=== PATIENT | female | born 1930 | race Caucasian/White ===

== ENCOUNTER 2017-03-09 10:46 | Inpatient (IN) | payer MEDICARE, OTHER ==
[~2017-03-09] VITALS: Ht 160 cm; Wt 67.8 kg
[2017-03-09] MEDS ORDERED: METO50TA82 PO (11:15)
[2017-03-09] MEDS ORDERED: BENA1TAB11 PO (11:15)
[2017-03-09] MEDS ORDERED: ATOR20TA PO (11:15)
[2017-03-09] MEDS ORDERED: LEVO50TA5 PO (11:15)
[2017-03-09] MEDS ORDERED: ONDANSETRON 2MG/ML, 2ML ONE (11:29)
[2017-03-09] MEDS ORDERED: MORPHINE SULFATE 4 MG/ML, 1ML IVPush PRN ×2 (11:30→16:30)
[2017-03-09] MEDS ORDERED: SODIUM CHLORIDE 0.9% 1,000ML IVBOLUS ONE (11:30)
[2017-03-09] MEDS ORDERED: SODIUM CHLORIDE FLUSH 10ML SYR IVF ONE (11:30)
[2017-03-09] MEDS ORDERED: ONDANSETRON 2MG/ML, 2ML IVPush ONE (11:30)
[2017-03-09] MEDS ORDERED: ASPIRIN 81 MG TABLET CHEW PO ONE (11:30)
[2017-03-09 12:37] LABS: ASPARTATE AMINO TRANSFERASE 191 U/L (15-37); BLOOD UREA NITROGEN 20 mg/dL (7-18); IS PT STATUS REG ER OR PRE ER? YES
[2017-03-09] MEDS ORDERED: OMNIPAQUE 350 MG/ML, 100ML BOTTLE ONE (13:03)
[2017-03-09] MEDS ORDERED: CEFOTETAN PMX 2GM/50ML 50 ML IV ONE (15:00)
[2017-03-09 15:43] VITALS: BP 166/68
[2017-03-09] MEDS ORDERED: HYDROcodone/APAP 5/325 TABLET PO PRN (16:30)
[2017-03-09] MEDS ORDERED: ACETAMINOPHEN 325 MG TABLET PO PRN (16:30)
[2017-03-09] MEDS ORDERED: PIPERACILLIN/TAZO 3.375 GM in SODIUM CHLORIDE 0.9% 50 ML IV SCH ×2 (16:30→21:00)
[2017-03-09] MEDS ORDERED: POLYETHYLENE GLYCOL 17 GM PACKET PO PRN (16:30)
[2017-03-09] MEDS ORDERED: ONDANSETRON 2MG/ML, 2ML IVPush PRN (16:30)
[2017-03-09] MEDS ORDERED: DOCUSATE 100 MG CAPSULE PO PRN (16:30)
[2017-03-09] MEDS ORDERED: NITROGLYCERIN 0.4 MG BOTTLE (25 TABS) SL PRN (16:30)
[2017-03-09] MEDS ORDERED: CEFOTETAN PMX 2GM/50ML 50 ML IV SCH (16:30)
[2017-03-09] MEDS: SODIUM CHLORIDE 0.9% 1,000 ML IV SCH (16:36)
[2017-03-09] MEDS: PIPERACILLIN/TAZO 3.375 GM in SODIUM CHLORIDE 0.9% 50 ML IV SCH (17:38)
[2017-03-09 18:11] LABS: IS PT STATUS REG ER OR PRE ER? NO
[2017-03-09 18:51] VITALS: BP 147/65
[2017-03-09] MEDS ORDERED: ATORVASTATIN 20 MG TABLET PO SCH (21:00)
[2017-03-10 00:52] LABS: IS PT STATUS REG ER OR PRE ER? NO
[2017-03-10 02:52] VITALS: BP 112/58
[2017-03-10 04:59] LABS: ASPARTATE AMINO TRANSFERASE 332 U/L (15-37); BLOOD UREA NITROGEN 14 mg/dL (7-18)
[2017-03-10] MEDS: SODIUM CHLORIDE 0.9% 1,000 ML IV SCH ×2 (05:44→22:41)
[2017-03-10] MEDS: PIPERACILLIN/TAZO 3.375 GM in SODIUM CHLORIDE 0.9% 50 ML IV SCH ×4 (05:44→22:41)
[2017-03-10 07:28] VITALS: BP 117/55
[2017-03-10] MEDS: HYDROCHLOROTHIAZIDE 25 MG TABLET PO SCH (07:34)
[2017-03-10] MEDS: LEVOTHYROXINE 50 MCG TABLET PO SCH (07:34)
[2017-03-10] MEDS: BENAZEPRIL 20 MG TABLET PO SCH (07:34)
[2017-03-10] MEDS ORDERED: METOPROLOL TARTRATE 50 MG TABLET PO SCH (09:00)
[2017-03-10] MEDS ORDERED: DEXAMETHASONE 4 MG/ML, 1ML ONE (10:29)
[2017-03-10] MEDS ORDERED: PROPOFOL 10 MG/ML, 20ML ONE (10:29)
[2017-03-10] MEDS ORDERED: CEFAZOLIN 1,000 MG ONE (10:29)
[2017-03-10] MEDS ORDERED: SUCCINYLCHOLINE 20 MG/ML, 10ML ONE (10:29)
[2017-03-10] MEDS ORDERED: KETOROLAC 30 MG/1 ML ONE (10:29)
[2017-03-10] MEDS ORDERED: ONDANSETRON 2MG/ML, 2ML ONE (10:29)
[2017-03-10 13:55] VITALS: BP 125/51
[2017-03-10] MEDS ORDERED: BUPIVACAINE/PF-EPI 0.5% 1:200K ONE (15:34)
[2017-03-10] MEDS ORDERED: FENTANYL PF 250 MCG/5ML ONE (17:36)
[2017-03-10] MEDS ORDERED: OMNIPAQUE 350 MG/ML, 50 ML BOTTLE IV ONE (18:16)
[2017-03-10] MEDS ORDERED: OMNIPAQUE 350 MG/ML, 50 ML BOTTLE ONE (18:50)
[2017-03-10] MEDS ORDERED: ALBUTEROL SULFATE 2.5 MG/3 ML NPPB PRN (19:00)
[2017-03-10] MEDS ORDERED: HYDROcodone/APAP 7.5-325MG/15ML UDC PO PRN (19:00)
[2017-03-10] MEDS ORDERED: METOPROLOL 1 MG/ML, 5ML IV PRN (19:00)
[2017-03-10] MEDS ORDERED: ACETAMINOPHEN 325 MG TABLET PO PRN (19:00)
[2017-03-10] MEDS ORDERED: hydrALAzine 20 MG/ML, 1ML IV PRN (19:00)
[2017-03-10] MEDS ORDERED: HALOPERIDOL 5 MG/ML IV ONE (19:00)
[2017-03-10] MEDS ORDERED: FENTANYL PF 100 MCG/2ML ONE (19:38)
[2017-03-10] MEDS ORDERED: HYDROcodone/APAP 7.5-325MG/15ML UDC ONE (19:38)
[2017-03-10] MEDS: FENTANYL PF 100 MCG/2ML IV PRN ×3 (19:41→19:51)
[2017-03-10] MEDS ORDERED: HYDROmorphone 2 MG/ML, 1ML ONE (19:54)
[2017-03-10] MEDS: HYDROmorphone 1 MG/ML, 1ML IV PRN ×3 (19:55→20:06)
[2017-03-10 20:40] VITALS: BP 120/51
[2017-03-11 02:43] VITALS: BP 119/63
[2017-03-11] MEDS ORDERED: OXYcodone IR 5MG TABLET PO PRN (04:00)
[2017-03-11] MEDS: CEFOTETAN PMX 1GM/50ML 50 ML IV SCH ×2 (05:03→17:00)
[2017-03-11] MEDS: PIPERACILLIN/TAZO 3.375 GM in SODIUM CHLORIDE 0.9% 50 ML IV SCH ×3 (05:36→21:41)
[2017-03-11 05:50] VITALS: BP 146/68
[2017-03-11] MEDS: METOPROLOL SUCCINATE 50 MG TAB.ER.24H PO SCH (06:00)
[2017-03-11] MEDS: LEVOTHYROXINE 50 MCG TABLET PO SCH (06:30)
[2017-03-11 07:08] VITALS: BP 138/65
[2017-03-11 08:40] LABS: BLOOD UREA NITROGEN 15 mg/dL (7-18)
[2017-03-11] MEDS: BENAZEPRIL 20 MG TABLET PO SCH (09:00)
[2017-03-11] MEDS: HYDROCHLOROTHIAZIDE 25 MG TABLET PO SCH (09:00)
[2017-03-11] MEDS ORDERED: MAGNESIUM SULFATE PMX 2GM/50ML 50 ML IV ONE (09:30)
[2017-03-11] MEDS ORDERED: FENTANYL PF 250 MCG/5ML ONE (09:47)
[2017-03-11] MEDS ORDERED: MEPERIDINE/PF 25MG/0.5ML IVPush PRN (10:30)
[2017-03-11] MEDS ORDERED: ONDANSETRON 2MG/ML, 2ML IVPush PRN (10:30)
[2017-03-11] MEDS ORDERED: MIDAZOLAM 1 MG/ML, 2ML IV PRN (10:30)
[2017-03-11] MEDS ORDERED: PROMETHAZINE 25 MG/ML, 1ML IV PRN (10:30)
[2017-03-11] MEDS ORDERED: HYDROmorphone 1 MG/ML, 1ML IV PRN (10:30)
[2017-03-11] MEDS ORDERED: ALBUTEROL/IPRATROPIUM 2.5MG/0.5MG, 3 ML NPPB PRN (10:30)
[2017-03-11] MEDS ORDERED: FENTANYL PF 100 MCG/2ML IV PRN (10:30)
[2017-03-11] MEDS ORDERED: OXYcodone 5 MG/5 ML ORAL.SOL UDC PO PRN (10:30)
[2017-03-11] MEDS ORDERED: LABETALOL 5MG/ML, 20ML IV PRN (10:30)
[2017-03-11] MEDS ORDERED: EPHEDRINE 50 MG/ML, 1ML IVPush PRN (10:30)
[2017-03-11] MEDS ORDERED: hydrALAzine 20 MG/ML, 1ML IV PRN (10:30)
[2017-03-11] MEDS ORDERED: OMNIPAQUE 350 MG/ML, 50 ML BOTTLE ONE (10:51)
[2017-03-11] MEDS ORDERED: SUCCINYLCHOLINE 20 MG/ML, 10ML ONE (11:44)
[2017-03-11] MEDS ORDERED: PROPOFOL 10 MG/ML, 20ML ONE (11:44)
[2017-03-11] MEDS ORDERED: ONDANSETRON 2MG/ML, 2ML ONE (11:44)
[2017-03-11] MEDS ORDERED: PHENYLEPHRINE 10 MG/ML ONE (11:44)
[2017-03-11] MEDS ORDERED: DEXAMETHASONE 4 MG/ML, 1ML ONE (11:44)
[2017-03-11] MEDS ORDERED: EPHEDRINE 50 MG/ML, 1ML ONE (11:44)
[2017-03-11 14:30] VITALS: BP 116/72
[2017-03-11] MEDS: SODIUM CHLORIDE 0.9% 1,000 ML IV SCH (15:11)
[2017-03-12 02:08] VITALS: BP 121/66
[2017-03-12] MEDS: SODIUM CHLORIDE 0.9% 1,000 ML IV SCH (04:21)
[2017-03-12] MEDS: PIPERACILLIN/TAZO 3.375 GM in SODIUM CHLORIDE 0.9% 50 ML IV SCH ×4 (04:21→21:09)
[2017-03-12 06:09] LABS: BLOOD UREA NITROGEN 13 mg/dL (7-18)
[2017-03-12] MEDS: LEVOTHYROXINE 50 MCG TABLET PO SCH (06:10)
[2017-03-12] MEDS: METOPROLOL SUCCINATE 50 MG TAB.ER.24H PO SCH (06:10)
[2017-03-12 06:14] LABS: ASPARTATE AMINO TRANSFERASE 69 U/L (15-37)
[2017-03-12 08:00] VITALS: BP 120/49
[2017-03-12] MEDS: BENAZEPRIL 20 MG TABLET PO SCH (09:31)
[2017-03-12] MEDS: HYDROCHLOROTHIAZIDE 25 MG TABLET PO SCH (09:31)
[2017-03-12 15:07] VITALS: BP 133/68
[2017-03-12 20:35] VITALS: BP 138/72
[2017-03-12] MEDS: SENNA/DOCUSATE TABLET PO SCH (21:09)
[2017-03-13 01:12] VITALS: BP 149/68
[2017-03-13] MEDS: PIPERACILLIN/TAZO 3.375 GM in SODIUM CHLORIDE 0.9% 50 ML IV SCH ×2 (03:34→09:32)
[2017-03-13] MEDS: METOPROLOL SUCCINATE 50 MG TAB.ER.24H PO SCH (05:30)
[2017-03-13] MEDS: LEVOTHYROXINE 50 MCG TABLET PO SCH (05:30)
[2017-03-13 05:37] LABS: BLOOD UREA NITROGEN 13 mg/dL (7-18)
[2017-03-13 05:42] LABS: ASPARTATE AMINO TRANSFERASE 39 U/L (15-37)
[2017-03-13 07:53] VITALS: BP 145/74
[2017-03-13] MEDS: HYDROCHLOROTHIAZIDE 25 MG TABLET PO SCH (09:32)
[2017-03-13] MEDS: SENNA/DOCUSATE TABLET PO SCH (09:32)
[2017-03-13] MEDS: BENAZEPRIL 20 MG TABLET PO SCH (09:32)
[2017-03-13] MEDS ORDERED: POTASSIUM CHLORIDE 20 MEQ TAB.ER.PRT PO ONE (12:00)
[2017-03-13 13:14] VITALS: BP 187/64
== END 2017-03-13 14:14 | disposition home or self-care (01) | DRG 417 ==
LOC: ED 13:20 → EDIP 14:12 → 5SO 15:29 → 4EST 03-11 05:46 → DCLOUNGE 03-13 13:57
PROVIDERS: ADMIT Internal Medicine
PROC: BF111ZZ Fluoroscopy of Biliary and Pancreatic Ducts using Low Osmolar Contrast (ICD-10-PCS; 2017-03-10)
PROC: 0FT44ZZ Resection of Gallbladder, Percutaneous Endoscopic Approach (ICD-10-PCS; principal; 2017-03-10 16:30)
PROC: 0FC98ZZ Extirpation of Matter from Common Bile Duct, Via Natural or Artificial Opening Endoscopic (ICD-10-PCS; 2017-03-11)
DX: K80.46 Calculus of bile duct with acute and chronic cholecystitis without obstruction (principal); E43 Unspecified severe protein-calorie malnutrition; K85.10 Biliary acute pancreatitis without necrosis or infection; E87.1 Hypo-osmolality and hyponatremia; E87.2 Acidosis; E44.1 Mild protein-calorie malnutrition; R65.10 Systemic inflammatory response syndrome (SIRS) of non-infectious origin without acute organ dysfunction; E03.9 Hypothyroidism, unspecified; E78.5 Hyperlipidemia, unspecified; K44.9 Diaphragmatic hernia without obstruction or gangrene; K66.0 Peritoneal adhesions (postprocedural) (postinfection); Z66 Do not resuscitate; H35.30 Unspecified macular degeneration; D53.9 Nutritional anemia, unspecified; I11.9 Hypertensive heart disease without heart failure; I25.10 Atherosclerotic heart disease of native coronary artery without angina pectoris; I25.2 Old myocardial infarction; Z79.82 Long term (current) use of aspirin; Z87.891 Personal history of nicotine dependence; Z95.1 Presence of aortocoronary bypass graft; Z79.899 Other long term (current) drug therapy; Z68.26 Body mass index [BMI] 26.0-26.9, adult
CPT/HCPCS: 36415; 71010; 71275; 74300; 74328; 76700; 80048; 80053; 81003; 83605; 83735; 83880; 84145; 84443; 84484; 85025; 85379; 85610; 87040; 88304; 93005; 96361; 96374; C1729; J0690; J1100; J1170; J1885; J2405; J2543; J2704; J3010; Q9967; J0330; J2370; J3475; J7030; S0074

== ENCOUNTER 2018-07-06 08:22 | Inpatient (IN) | payer MEDICARE, OTHER ==
[~2018-07-06] VITALS: Ht 160 cm; Wt 74.4 kg
[~2018-07-06 08:22] MED LIST: ATOR20TA PO; BENA1TAB11 PO; LEVO50TA5 PO; METO50TA82 PO
[2018-07-06] MEDS ORDERED: NITROGLYCERIN SINGLE TAB 0.4 MG SL ONE (09:28)
[2018-07-06] MEDS ORDERED: ONDANSETRON ODT 4 MG ONE ×2 (09:28→11:18)
[2018-07-06] MEDS ORDERED: MAALOX/HYOSCYAMINE/LIDOCAINE 45 ML BTL ONE (09:28)
[2018-07-06] MEDS ORDERED: ONDANSETRON ODT 4 MG PO ONE ×2 (09:30→11:30)
[2018-07-06] MEDS ORDERED: NITROGLYCERIN SINGLE TAB 0.4 MG SL PRN (09:30)
[2018-07-06] MEDS ORDERED: MAALOX/HYOSCYAMINE/LIDOCAINE 45 ML BTL PO ONE (09:30)
[2018-07-06 09:58] LABS: BASOPHILS % (AUTO) 0 % (0-1); EOSINOPHILS # (AUTO) 0.02 x10^3/uL (0-0.4); EOSINOPHILS % (AUTO) 0 % (1-7); LYMPHOCYTES # (AUTO) 0.56 x10^3/uL (1-3.4); LYMPHOCYTES % (AUTO) 5 % (22-44); MD NO; MEAN CORPUSCULAR HEMOGLOBIN 34.4 pg (27.0-34.8); MEAN CORPUSCULAR HGB CONC 34.3 g/dL (32.4-35.8); MEAN CORPUSCULAR VOLUME 100.5 fL (80-100); MEAN PLATELET VOLUME 7.8 fL (7.4-10.4); MONOCYTES # (AUTO) 0.36 x10^3/uL (0.2-0.8); MONOCYTES % (AUTO) 3 % (2-9); NEUTROPHILS # (AUTO) 9.53 x10^3/uL (1.8-6.8); NEUTROPHILS % (AUTO) 91 % (42-75); PLATELET COUNT 127 x10^3/uL (130-400); RED BLOOD COUNT 4.18 x10^6/uL (3.82-5.3); RED CELL DISTRIBUTION WIDTH 13.7 % (9.6-15.2)
[2018-07-06 10:03] LABS: ALANINE AMINOTRANSFERASE 206 U/L (12-78); ALBUMIN 3.5 g/dL (3.4-5.0); ANION GAP 8 mmol/L (5-15); CALCIUM 9.6 mg/dL (8.5-10.1); CHLORIDE 99 mmol/L (98-107); CREATININE 0.82 mg/dL (0.55-1.02)
[2018-07-06 10:08] LABS: ALKALINE PHOSPHATASE 101 U/L (45-117); BILIRUBIN,TOTAL 1.8 mg/dL (0.2-1.0); TOTAL PROTEIN 6.6 g/dL (6.4-8.2); TROPONIN I < 0.015 ng/mL (0.000-0.045)
[2018-07-06] MEDS ORDERED: MORPHINE SULFATE 4 MG/ML, 1ML IVPush ONE (10:30)
[2018-07-06] MEDS ORDERED: MORPHINE SULFATE 4 MG/ML, 1ML ONE ×2 (10:36→12:27)
[2018-07-06] MEDS ORDERED: PROMETHAZINE 25 MG/ML, 1ML IM ONE (11:30)
[2018-07-06] MEDS ORDERED: ACETAMINOPHEN 325 MG TABLET PO PRN (13:00)
[2018-07-06] MEDS ORDERED: PROMETHAZINE 25 MG/ML, 1ML IM PRN (13:00)
[2018-07-06] MEDS ORDERED: ENOXAPARIN 40 MG/0.4 ML SQ SCH (13:00)
[2018-07-06] MEDS ORDERED: morphine SULFATE 10 MG/ML, 1ML IVPush PRN (13:00)
[2018-07-06 14:17] VITALS: BP 168/76
[2018-07-06] MEDS: KETOROLAC 30 MG/1 ML IV PRN (14:39)
[2018-07-06 14:46] LABS: TROPONIN I < 0.015 ng/mL (0.000-0.045)
[2018-07-06] MEDS: SODIUM CHLORIDE 0.9% 1,000 ML IV SCH (15:04)
[2018-07-06] MEDS ORDERED: IBAN150T PO (15:53)
[2018-07-06] MEDS: ISOSORBIDE DINITRATE 10 MG TABLET PO SCH ×2 (16:13→21:00)
[2018-07-06 20:53] LABS: TROPONIN I 0.019 ng/mL (0.000-0.045)
[2018-07-06 21:00] VITALS: BP 102/66
[2018-07-06] MEDS ORDERED: ATORVASTATIN CALCIUM 20 MG PO SCH (21:00)
[2018-07-06 21:33] VITALS: BP 90/53
[2018-07-06] MEDS: ATORVASTATIN 40 MG TABLET PO SCH (21:39)
[2018-07-07] MEDS: KETOROLAC 30 MG/1 ML IV PRN (01:49)
[2018-07-07 02:06] VITALS: BP 139/67
[2018-07-07] MEDS: SODIUM CHLORIDE 0.9% 1,000 ML IV SCH (05:58)
[2018-07-07 06:06] LABS: CHLORIDE 99 mmol/L (98-107)
[2018-07-07 06:14] LABS: ALANINE AMINOTRANSFERASE 315 U/L (12-78); ALBUMIN 2.8 g/dL (3.4-5.0); ALKALINE PHOSPHATASE 113 U/L (45-117); ANION GAP 12 mmol/L (5-15); BILIRUBIN,TOTAL 5.7 mg/dL (0.2-1.0); CALCIUM 9.2 mg/dL (8.5-10.1); CREATININE 1.31 mg/dL (0.55-1.02); TOTAL PROTEIN 5.4 g/dL (6.4-8.2)
[2018-07-07] MEDS: LEVOTHYROXINE 50 MCG TABLET PO SCH (06:49)
[2018-07-07] MEDS: ASPIRIN 325 MG TABLET PO SCH (06:49)
[2018-07-07 07:14] LABS: INTERNATIONAL NORMALIZED RATIO 1.16 (0.93-1.1)
[2018-07-07 08:26] VITALS: BP 96/60
[2018-07-07] MEDS: CARVEDILOL 6.25 MG TABLET PO SCH ×2 (08:26→16:48)
[2018-07-07] MEDS: ISOSORBIDE DINITRATE 10 MG TABLET PO SCH ×3 (08:27→21:00)
[2018-07-07] MEDS: HEPARIN 5,000 UNITS/ML, 1ML SQ SCH ×2 (08:27→17:41)
[2018-07-07] MEDS ORDERED: METOPROLOL TARTRATE 50 MG TABLET PO SCH (09:00)
[2018-07-07] MEDS ORDERED: METOPROLOL TARTRATE 25 MG TABLET PO SCH (09:00)
[2018-07-07] MEDS ORDERED: FENTANYL PF 100 MCG/2ML ONE (12:54)
[2018-07-07] MEDS ORDERED: PROPOFOL 10 MG/ML, 20ML ONE (12:55)
[2018-07-07] MEDS ORDERED: DEXAMETHASONE 4 MG/ML, 1ML ONE ×2 (12:55)
[2018-07-07] MEDS ORDERED: ROCURONIUM 10MG/ML,5ML ONE (12:55)
[2018-07-07] MEDS ORDERED: SUCCINYLCHOLINE 20 MG/ML, 10ML ONE (12:55)
[2018-07-07] MEDS ORDERED: ONDANSETRON 2MG/ML, 2ML ONE (12:58)
[2018-07-07] MEDS ORDERED: OXYcodone 5 MG/5 ML ORAL.SOL UDC PO PRN (13:30)
[2018-07-07] MEDS ORDERED: ONDANSETRON ODT 8 MG PO PRN (13:30)
[2018-07-07] MEDS ORDERED: EPHEDRINE 50 MG/ML, 1ML IVPush PRN (13:30)
[2018-07-07] MEDS ORDERED: LORazepam 2 MG/ML, 1ML IVPush PRN (13:30)
[2018-07-07] MEDS ORDERED: FENTANYL PF 100 MCG/2ML IV PRN (13:30)
[2018-07-07] MEDS ORDERED: PROMETHAZINE 12.5 MG SUPP PR PRN (13:30)
[2018-07-07] MEDS ORDERED: hydrALAzine 20 MG/ML, 1ML IV PRN (13:30)
[2018-07-07] MEDS ORDERED: ONDANSETRON 2MG/ML, 2ML IV PRN (13:30)
[2018-07-07] MEDS ORDERED: MIDAZOLAM 1 MG/ML, 2ML IV PRN (13:30)
[2018-07-07] MEDS ORDERED: HYDROmorphone 1 MG/ML, 1ML IV PRN (13:30)
[2018-07-07] MEDS ORDERED: LABETALOL 5MG/ML, 20ML IV PRN (13:30)
[2018-07-07] MEDS ORDERED: MORPHINE SULFATE 4 MG/ML, 1ML IVPush PRN (13:30)
[2018-07-07] MEDS ORDERED: PROMETHAZINE 25 MG/ML, 1ML IV PRN (13:30)
[2018-07-07] MEDS ORDERED: MEPERIDINE/PF 25MG/0.5ML IVPush PRN (13:30)
[2018-07-07] MEDS ORDERED: ALBUTEROL SULFATE 2.5 MG/3 ML NPPB PRN (13:30)
[2018-07-07] MEDS ORDERED: EPHEDRINE 50 MG/ML, 1ML ONE (13:55)
[2018-07-07] MEDS ORDERED: EPHEDRINE 50 MG/ML, 1ML IM ONE (14:00)
[2018-07-07] MEDS ORDERED: EPHEDRINE 50 MG/ML, 1ML IVPush ONE (14:00)
[2018-07-07] MEDS ORDERED: OMNIPAQUE 350 MG/ML, 50 ML BOTTLE ONE (14:29)
[2018-07-07 15:15] VITALS: BP 108/77
[2018-07-07 19:44] VITALS: BP 104/64
[2018-07-07] MEDS: ATORVASTATIN 40 MG TABLET PO SCH ×2 (21:00→21:05)
[2018-07-07 21:04] VITALS: BP 90/57
[2018-07-07 23:40] VITALS: BP 91/61
[2018-07-08] MEDS: SODIUM CHLORIDE 0.9% 1,000 ML IV SCH ×2 (00:35→18:41)
[2018-07-08] MEDS: HEPARIN 5,000 UNITS/ML, 1ML SQ SCH ×3 (00:36→16:30)
[2018-07-08 06:00] VITALS: BP 100/67
[2018-07-08] MEDS: ASPIRIN 325 MG TABLET PO SCH (06:00)
[2018-07-08] MEDS: LEVOTHYROXINE 50 MCG TABLET PO SCH (06:13)
[2018-07-08] MEDS: CARVEDILOL 6.25 MG TABLET PO SCH ×2 (06:13→22:25)
[2018-07-08 14:27] LABS: ALBUMIN 2.8 g/dL (3.4-5.0); ANION GAP 9 mmol/L (5-15); CALCIUM 8.7 mg/dL (8.5-10.1); CHLORIDE 103 mmol/L (98-107)
[2018-07-08 14:32] LABS: ALANINE AMINOTRANSFERASE 527 U/L (12-78); ALKALINE PHOSPHATASE 104 U/L (45-117); BILIRUBIN,TOTAL 1.3 mg/dL (0.2-1.0); CREATININE 1.28 mg/dL (0.55-1.02)
[2018-07-08 15:43] LABS: MD YES; MEAN CORPUSCULAR HEMOGLOBIN 35.3 pg (27.0-34.8); MEAN CORPUSCULAR HGB CONC 35.2 g/dL (32.4-35.8); MEAN CORPUSCULAR VOLUME 100.5 fL (80-100); MEAN PLATELET VOLUME 9.2 fL (7.4-10.4); PLATELET COUNT 92 x10^3/uL (130-400); RED BLOOD COUNT 3.56 x10^6/uL (3.82-5.3); RED CELL DISTRIBUTION WIDTH 14.1 % (9.6-15.2)
[2018-07-08 15:45] LABS: BAND#(MANUAL) 2.65 x10^3/uL; BANDS%(MANUAL) 21 % (0-7); LYMPH#(MANUAL) 0.38 x10^3/uL (1-3.4); LYMPHS% (MANUAL) 3 % (22-44); MONOS% (MANUAL) 4 % (2-9); SEG#(MANUAL) 9.07 x10^3/uL (1.8-6.8); SEGS% (MANUAL) 72 % (42-75)
[2018-07-08 15:47] VITALS: BP 101/62
[2018-07-08 15:47] LABS: <PLATELET ESTIMATE> DECREASED; <PLT MORPHOLOGY> NORMAL PLT MORPH; ANISOCYTOSIS 1+; OVALOCYTES 1+; TOXIC GRAN 1+
[2018-07-08 22:16] VITALS: BP 86/56
[2018-07-08] MEDS: ATORVASTATIN 40 MG TABLET PO SCH (22:17)
[2018-07-09] MEDS: HEPARIN 5,000 UNITS/ML, 1ML SQ SCH ×2 (00:30→10:31)
[2018-07-09 01:21] VITALS: BP 89/58
[2018-07-09 05:27] VITALS: BP 91/57
[2018-07-09] MEDS: ASPIRIN 325 MG TABLET PO SCH (05:29)
[2018-07-09] MEDS: LEVOTHYROXINE 50 MCG TABLET PO SCH (05:29)
[2018-07-09] MEDS: CARVEDILOL 6.25 MG TABLET PO SCH (08:00)
[2018-07-09 08:13] VITALS: BP 88/61
[2018-07-09 09:07] LABS: MICROSCOPIC NOT IND
[2018-07-09 09:16] LABS: CULTURE INDICATED? NO
[2018-07-09 10:42] LABS: ALANINE AMINOTRANSFERASE 319 U/L (12-78); ALBUMIN 2.4 g/dL (3.4-5.0); ANION GAP 8 mmol/L (5-15); CALCIUM 8.4 mg/dL (8.5-10.1); CHLORIDE 107 mmol/L (98-107); CREATININE 0.87 mg/dL (0.55-1.02)
[2018-07-09 10:44] LABS: ALKALINE PHOSPHATASE 84 U/L (45-117); BILIRUBIN,TOTAL 1.1 mg/dL (0.2-1.0); TOTAL PROTEIN 5.1 g/dL (6.4-8.2)
[2018-07-09 12:03] VITALS: BP 103/67
[2018-07-09] MEDS ORDERED: CARVEDILOL 6.25 MG TABLET PO SCH (12:25)
[2018-07-09] MEDS ORDERED: CARVEDILOL 6.25 MG TABLET ONE (12:29)
[2018-07-09 13:12] VITALS: BP 92/60
== END 2018-07-09 16:55 | disposition home or self-care (01) | DRG 444 ==
LOC: ED 10:15 → EDIP 12:10 → 5SO 14:02 → DCLOUNGE 07-09 16:36
PROVIDERS: ADMIT Internal Medicine; ATTEND Hospitalist
PROC: BF101ZZ Fluoroscopy of Bile Ducts using Low Osmolar Contrast (ICD-10-PCS; 2018-07-07)
PROC: 0F798ZZ Dilation of Common Bile Duct, Via Natural or Artificial Opening Endoscopic (ICD-10-PCS; 2018-07-07)
PROC: 0F778ZZ Dilation of Common Hepatic Duct, Via Natural or Artificial Opening Endoscopic (ICD-10-PCS; 2018-07-07)
PROC: 0FC98ZZ Extirpation of Matter from Common Bile Duct, Via Natural or Artificial Opening Endoscopic (ICD-10-PCS; principal; 2018-07-07 13:00)
DX: K80.50 Calculus of bile duct without cholangitis or cholecystitis without obstruction (principal); N17.0 Acute kidney failure with tubular necrosis; I25.10 Atherosclerotic heart disease of native coronary artery without angina pectoris; E03.9 Hypothyroidism, unspecified; E78.5 Hyperlipidemia, unspecified; I10 Essential (primary) hypertension; Z87.891 Personal history of nicotine dependence; Z95.1 Presence of aortocoronary bypass graft; Z90.49 Acquired absence of other specified parts of digestive tract; I25.2 Old myocardial infarction; R00.1 Bradycardia, unspecified; G47.00 Insomnia, unspecified; H35.30 Unspecified macular degeneration; R07.89 Other chest pain; I48.91 Unspecified atrial fibrillation; R09.02 Hypoxemia; R41.0 Disorientation, unspecified; T41.45XA Adverse effect of unspecified anesthetic, initial encounter
CPT/HCPCS: 36415; 71045; 74181; 74328; 76700; 80053; 80074; 81003; 83690; 84443; 84484; 85025; 85610; 93005; 96374; 99285; G0378; J1100; J1644; J1885; J2405; J2704; J3010; Q0162; Q9967; C1769; J0330; J7030

== ENCOUNTER 2018-07-15 10:20 | Inpatient (IN) | payer MEDICARE ==
[~2018-07-15] VITALS: Ht 160 cm; Wt 70.9 kg
[~2018-07-15 10:20] MED LIST changes: +IBAN150T PO
[2018-07-15 11:18] LABS: BASOPHILS # (AUTO) 0.04 x10^3/uL (0-0.1); BASOPHILS % (AUTO) 1 % (0-1); EOSINOPHILS # (AUTO) 0.02 x10^3/uL (0-0.4); EOSINOPHILS % (AUTO) 0 % (1-7); LYMPHOCYTES # (AUTO) 0.64 x10^3/uL (1-3.4); LYMPHOCYTES % (AUTO) 8 % (22-44); MD NO; MEAN CORPUSCULAR HEMOGLOBIN 34.4 pg (27.0-34.8); MEAN CORPUSCULAR VOLUME 101.3 fL (80-100); MEAN PLATELET VOLUME 8.4 fL (7.4-10.4); MONOCYTES # (AUTO) 0.43 x10^3/uL (0.2-0.8); MONOCYTES % (AUTO) 5 % (2-9); NEUTROPHILS # (AUTO) 6.99 x10^3/uL (1.8-6.8); NEUTROPHILS % (AUTO) 86 % (42-75); PLATELET COUNT 173 x10^3/uL (130-400); RED BLOOD COUNT 3.64 x10^6/uL (3.82-5.3); RED CELL DISTRIBUTION WIDTH 14.2 % (9.6-15.2)
[2018-07-15 11:27] LABS: ALANINE AMINOTRANSFERASE 73 U/L (12-78); ALBUMIN 2.9 g/dL (3.4-5.0); ANION GAP 13 mmol/L (5-15); CALCIUM 9.6 mg/dL (8.5-10.1); CHLORIDE 106 mmol/L (98-107); CREATININE 0.83 mg/dL (0.55-1.02)
[2018-07-15 11:30] LABS: ALKALINE PHOSPHATASE 77 U/L (45-117); BILIRUBIN,TOTAL 1.1 mg/dL (0.2-1.0); TOTAL PROTEIN 6.1 g/dL (6.4-8.2)
[2018-07-15] MEDS ORDERED: ASPIRIN 81 MG TABLET CHEW ONE (13:16)
[2018-07-15] MEDS ORDERED: FUROSEMIDE 40 MG/4 ML IV ONE (13:30)
[2018-07-15] MEDS ORDERED: ASPIRIN 81 MG TABLET CHEW PO ONE (13:30)
[2018-07-15 13:35] LABS: INTERNATIONAL NORMALIZED RATIO 1.1 (0.93-1.1); PROTHROMBIN TIME 11.4 Seconds (9.6-11.5)
[2018-07-15] MEDS ORDERED: ACETAMINOPHEN 325 MG TABLET PO PRN (14:00)
[2018-07-15] MEDS ORDERED: DOCUSATE 100 MG CAPSULE PO PRN (14:00)
[2018-07-15] MEDS ORDERED: ONDANSETRON 2MG/ML, 2ML IVPush PRN (14:00)
[2018-07-15] MEDS ORDERED: POLYETHYLENE GLYCOL 17 GM PACKET PO PRN (14:00)
[2018-07-15] MEDS ORDERED: BISACODYL 10 MG SUPP PR PRN (14:00)
[2018-07-15] MEDS ORDERED: ENOXAPARIN 40 MG/0.4 ML SQ SCH (14:00)
[2018-07-15] MEDS ORDERED: LABETALOL 5MG/ML, 20ML IVPush PRN (14:00)
[2018-07-15 15:26] VITALS: BP 164/94
[2018-07-15] MEDS: POTASSIUM CHLORIDE 20 MEQ TAB.ER.PRT PO SCH (15:40)
[2018-07-15] MEDS ORDERED: HEPARIN 5,000 UNITS/ML, 1ML IV ONE (16:00)
[2018-07-15] MEDS ORDERED: HEPARIN 5,000 UNITS/ML, 1ML IV PRN (16:00)
[2018-07-15] MEDS: HEPARIN 25,000 UNITS/500ML PMX 500 ML IV PRN (16:01)
[2018-07-15 18:47] VITALS: BP 127/84
[2018-07-15] MEDS: ATORVASTATIN 20 MG TABLET PO SCH (21:04)
[2018-07-15] MEDS: SODIUM CHLORIDE FLUSH 10ML SYR IVF SCH (21:05)
[2018-07-15 21:16] VITALS: BP 121/70
[2018-07-16 00:17] VITALS: BP 111/70
[2018-07-16 05:02] LABS: BASOPHILS # (AUTO) 0.03 x10^3/uL (0-0.1); BASOPHILS % (AUTO) 0 % (0-1); EOSINOPHILS # (AUTO) 0.17 x10^3/uL (0-0.4); EOSINOPHILS % (AUTO) 2 % (1-7); LYMPHOCYTES # (AUTO) 1.17 x10^3/uL (1-3.4); LYMPHOCYTES % (AUTO) 15 % (22-44); MD NO; MEAN CORPUSCULAR HEMOGLOBIN 35.1 pg (27.0-34.8); MEAN CORPUSCULAR HGB CONC 34.4 g/dL (32.4-35.8); MEAN CORPUSCULAR VOLUME 102.1 fL (80-100); MEAN PLATELET VOLUME 8.4 fL (7.4-10.4); MONOCYTES # (AUTO) 0.73 x10^3/uL (0.2-0.8); MONOCYTES % (AUTO) 9 % (2-9); NEUTROPHILS # (AUTO) 5.78 x10^3/uL (1.8-6.8); NEUTROPHILS % (AUTO) 74 % (42-75); PLATELET COUNT 161 x10^3/uL (130-400); RED BLOOD COUNT 3.46 x10^6/uL (3.82-5.3); RED CELL DISTRIBUTION WIDTH 14.3 % (9.6-15.2)
[2018-07-16 05:09] LABS: ANION GAP 7 mmol/L (5-15); CALCIUM 8.9 mg/dL (8.5-10.1); CHLORIDE 106 mmol/L (98-107); CHOLESTEROL, TOTAL 101 mg/dL (140-239); CREATININE 0.84 mg/dL (0.55-1.02)
[2018-07-16 05:20] LABS: CHOL/HDL RATIO 3.4; HDL CHOL % 30 % (28-40); HDL CHOLESTEROL (DIRECT) 30 mg/dL (40-60); LDL CHOLESTEROL,CALCULATED 57 mg/dL (54-169); LDL/HDL RATIO 1.9 (0.5-3.0); TRIGLYCERIDES 70 mg/dL (50-200); VLDL CHOLESTEROL 14 mg/dL (0-25)
[2018-07-16 06:30] VITALS: BP 116/71
[2018-07-16] MEDS ORDERED: BENAZEPRIL 10 MG TABLET ONE (09:06)
[2018-07-16 09:42] VITALS: BP_SYST 114; BP_SYST 87; BP_DIAS 58; BP_DIAS 63
[2018-07-16] MEDS: METOPROLOL TARTRATE 50 MG TABLET PO SCH (10:06)
[2018-07-16] MEDS: LEVOTHYROXINE 50 MCG TABLET PO SCH (10:06)
[2018-07-16] MEDS: SODIUM CHLORIDE FLUSH 10ML SYR IVF SCH ×2 (10:07→21:31)
[2018-07-16 11:24] VITALS: BP 105/63
[2018-07-16] MEDS: FUROSEMIDE 20 MG/2 ML IV SCH (11:49)
[2018-07-16] MEDS: HYDROCHLOROTHIAZIDE 25 MG TABLET PO SCH (11:50)
[2018-07-16] MEDS: BENAZEPRIL 20 MG TABLET PO SCH (11:51)
[2018-07-16 12:14] VITALS: BP 120/76
[2018-07-16] MEDS ORDERED: NITROGLYCERIN 0.4 MG BOTTLE (25 TABS) SL PRN (12:30)
[2018-07-16] MEDS ORDERED: NITROGLYCERIN 0.4 MG/SPRAY SL PRN (12:30)
[2018-07-16] MEDS: POTASSIUM CHLORIDE 20 MEQ TAB.ER.PRT PO SCH (17:54)
[2018-07-16 19:14] VITALS: BP 107/62
[2018-07-16] MEDS: ATORVASTATIN 20 MG TABLET PO SCH (21:31)
[2018-07-16] MEDS: HEPARIN 25,000 UNITS/500ML PMX 500 ML IV PRN (23:15)
[2018-07-17 00:44] VITALS: BP 116/70
[2018-07-17 04:51] LABS: BASOPHILS # (AUTO) 0.05 x10^3/uL (0-0.1); BASOPHILS % (AUTO) 1 % (0-1); EOSINOPHILS # (AUTO) 0.19 x10^3/uL (0-0.4); EOSINOPHILS % (AUTO) 3 % (1-7); LYMPHOCYTES # (AUTO) 1.11 x10^3/uL (1-3.4); LYMPHOCYTES % (AUTO) 16 % (22-44); MD NO; MEAN CORPUSCULAR HGB CONC 34.1 g/dL (32.4-35.8); MEAN CORPUSCULAR VOLUME 102.8 fL (80-100); MEAN PLATELET VOLUME 8.3 fL (7.4-10.4); MONOCYTES # (AUTO) 0.73 x10^3/uL (0.2-0.8); MONOCYTES % (AUTO) 11 % (2-9); NEUTROPHILS # (AUTO) 4.86 x10^3/uL (1.8-6.8); NEUTROPHILS % (AUTO) 70 % (42-75); PLATELET COUNT 159 x10^3/uL (130-400); RED BLOOD COUNT 3.11 x10^6/uL (3.82-5.3); RED CELL DISTRIBUTION WIDTH 14.7 % (9.6-15.2)
[2018-07-17 05:03] LABS: CHLORIDE 104 mmol/L (98-107)
[2018-07-17 05:09] LABS: ALANINE AMINOTRANSFERASE 54 U/L (12-78); ALBUMIN 2.3 g/dL (3.4-5.0); ALKALINE PHOSPHATASE 63 U/L (45-117); ANION GAP 9 mmol/L (5-15); BILIRUBIN,TOTAL 0.9 mg/dL (0.2-1.0); CALCIUM 8.4 mg/dL (8.5-10.1); CREATININE 0.84 mg/dL (0.55-1.02); TOTAL PROTEIN 5.1 g/dL (6.4-8.2)
[2018-07-17] MEDS: LEVOTHYROXINE 50 MCG TABLET PO SCH (05:20)
[2018-07-17 07:00] VITALS: BP 109/68
[2018-07-17] MEDS: BENAZEPRIL 20 MG TABLET PO SCH (09:00)
[2018-07-17] MEDS ORDERED: APIXABAN 5 MG TABLET ONE (09:20)
[2018-07-17] MEDS ORDERED: AMIODARONE 200 MG TABLET ONE (09:20)
[2018-07-17] MEDS ORDERED: BENAZEPRIL 10 MG TABLET ONE ×2 (09:20→09:24)
[2018-07-17] MEDS: SODIUM CHLORIDE FLUSH 10ML SYR IVF SCH ×2 (09:42→20:45)
[2018-07-17] MEDS: FUROSEMIDE 20 MG/2 ML IV SCH (09:42)
[2018-07-17] MEDS: APIXABAN 5 MG TABLET PO SCH ×2 (09:43→20:45)
[2018-07-17] MEDS: AMIODARONE 200 MG TABLET PO SCH ×2 (09:43→20:45)
[2018-07-17] MEDS: HYDROCHLOROTHIAZIDE 25 MG TABLET PO SCH (09:45)
[2018-07-17] MEDS: METOPROLOL TARTRATE 50 MG TABLET PO SCH (09:45)
[2018-07-17 13:48] VITALS: BP 94/46
[2018-07-17] MEDS: POTASSIUM CHLORIDE 20 MEQ TAB.ER.PRT PO SCH (17:25)
[2018-07-17] MEDS: ATORVASTATIN 20 MG TABLET PO SCH (20:45)
[2018-07-17 21:11] VITALS: BP 94/56
[2018-07-18 06:15] VITALS: BP 119/66
[2018-07-18] MEDS: LEVOTHYROXINE 50 MCG TABLET PO SCH (06:30)
[2018-07-18 07:00] VITALS: BP 119/63
[2018-07-18] MEDS: BENAZEPRIL 20 MG TABLET PO SCH (09:00)
[2018-07-18] MEDS ORDERED: BENAZEPRIL 10 MG TABLET ONE (09:44)
[2018-07-18] MEDS: METOPROLOL TARTRATE 50 MG TABLET PO SCH (09:59)
[2018-07-18] MEDS: APIXABAN 5 MG TABLET PO SCH (09:59)
[2018-07-18] MEDS: AMIODARONE 200 MG TABLET PO SCH (10:00)
[2018-07-18] MEDS: HYDROCHLOROTHIAZIDE 25 MG TABLET PO SCH (10:00)
[2018-07-18] MEDS: FUROSEMIDE 20 MG/2 ML IV SCH (10:00)
[2018-07-18] MEDS: SODIUM CHLORIDE FLUSH 10ML SYR IVF SCH (10:01)
[2018-07-18] MEDS ORDERED: POTA20TA6 PO (13:45)
[2018-07-18] MEDS ORDERED: APIX5TAB PO ×2 (13:45→14:46)
[2018-07-18] MEDS ORDERED: AMIO200T42 PO (13:45)
[2018-07-18] MEDS ORDERED: FURO-93 PO (13:45)
== END 2018-07-18 15:24 | disposition hospice, home (50) | DRG 280 ==
LOC: ED 11:00 → EDIP 13:25 → 5SO 15:05
PROVIDERS: ADMIT Internal Medicine; ATTEND Internal Medicine
DX: I21.4 Non-ST elevation (NSTEMI) myocardial infarction (principal); K85.90 Acute pancreatitis without necrosis or infection, unspecified; I50.23 Acute on chronic systolic (congestive) heart failure; E44.0 Moderate protein-calorie malnutrition; E87.2 Acidosis; D68.69 Other thrombophilia; I42.9 Cardiomyopathy, unspecified; I48.0 Paroxysmal atrial fibrillation; I11.0 Hypertensive heart disease with heart failure; I25.10 Atherosclerotic heart disease of native coronary artery without angina pectoris; I25.2 Old myocardial infarction; H35.30 Unspecified macular degeneration; F32.9 Major depressive disorder, single episode, unspecified; E78.5 Hyperlipidemia, unspecified; E03.9 Hypothyroidism, unspecified; I27.20 Pulmonary hypertension, unspecified; I08.3 Combined rheumatic disorders of mitral, aortic and tricuspid valves; Z79.899 Other long term (current) drug therapy; Z68.27 Body mass index [BMI] 27.0-27.9, adult; Z60.2 Problems related to living alone; Z90.49 Acquired absence of other specified parts of digestive tract; Z87.891 Personal history of nicotine dependence; Z66 Do not resuscitate; Z95.1 Presence of aortocoronary bypass graft
CPT/HCPCS: 36415; 71046; 80048; 80053; 80061; 83690; 83880; 84443; 84484; 85014; 85018; 85025; 85520; 85610; 85730; 93005; 93306; 99291; G0378; J1644; J1940